=== PATIENT | female | born 1950 | race Caucasian/White ===

== ENCOUNTER 2019-09-17 06:22 | Day surgery (SDC) | payer MEDICARE, MEDICAID ==
[~2019-09-17] VITALS: Ht 144.8 cm; Wt 45.9 kg
[~2019-09-17 06:22] MED LIST: SODIUM CHLORIDE 0.9% 1,000 ML ONE
[2019-09-17] MEDS ORDERED: BENZOCAINE 20% 50 MCG/SPRAY 57 GM TP ONE (06:23)
[2019-09-17] MEDS ORDERED: ALBUTEROL SULFATE 2.5 MG/0.5 ML NEB SOLUTION NEB ONE (06:23)
[2019-09-17] MEDS ORDERED: LIDOCAINE 4% 50 ML SOLUTION TP ONE (06:23)
[2019-09-17] MEDS ORDERED: LIDOCAINE 2% 30 ML JELLY TP ONE (06:23)
[2019-09-17] MEDS ORDERED: SODIUM CHLORIDE 0.9% 1,000 ML IV ONE (07:00)
[2019-09-17] MEDS ORDERED: MIDAZOLAM HCL 2 MG/2 ML VIAL ONE (07:03)
[2019-09-17] MEDS ORDERED: FentaNYL CITRATE-PF 100 MCG/2 ML VIAL ONE (07:03)
[2019-09-17] MEDS ORDERED: FLUT16H NASAL (07:22)
[2019-09-17] MEDS ORDERED: DOXY100C PO (07:22)
[2019-09-17] MEDS ORDERED: IPRA4AER IH (07:22)
[2019-09-17] MEDS ORDERED: ALEN70TA10 PO (07:22)
[2019-09-17] MEDS ORDERED: PRED10 PO (07:22)
[2019-09-17] MEDS ORDERED: MONTELUKAST PO (07:22)
[2019-09-17] MEDS ORDERED: ALBU8.5H8 IH (07:22)
[2019-09-17] MEDS ORDERED: MOME13HF IH (07:22)
[2019-09-17] MEDS ORDERED: MethylPREDNISolone SOD SUCC 125 MG/2 ML VIAL ONE (08:30)
[2019-09-17] MEDS ORDERED: MethylPREDNISolone SOD SUCC 125 MG/2 ML VIAL IVP ONE (09:00)
== END 2019-09-17 10:40 | disposition home or self-care (01) ==
LOC: SURGERY 06:22
PROVIDERS: ATTEND Internal Medicine Critical Care Medicine
DX: R05 Cough (principal); R04.2 Hemoptysis; J34.89 Other specified disorders of nose and nasal sinuses; J98.8 Other specified respiratory disorders; J38.4 Edema of larynx; B37.0 Candidal stomatitis; R19.09 Other intra-abdominal and pelvic swelling, mass and lump; E78.00 Pure hypercholesterolemia, unspecified; M19.90 Unspecified osteoarthritis, unspecified site; Z79.899 Other long term (current) drug therapy
CPT/HCPCS: 31623; 31624; 36415; 71045; 85610; 87015; 87070; 87101; 87205; 87206; 87220; 88184; 88185; J2250; J2930; J3010; J7030; 88108; 88312

== ENCOUNTER 2022-09-05 18:43 | Inpatient (IN) | payer MEDICARE, OTHER ==
[~2022-09-05] VITALS: Ht 152.4 cm; Wt 46.0 kg
[~2022-09-05 18:43] MED LIST changes: +ALBU8.5H8 IH; +ALEN70TA65 PO; +DOXY100C PO; +FLUT16SP NASAL; +IPRA4AER IH; +MOME13HF11 IH; +MONTELUKAST PO; +PRED-729 PO; -SODIUM CHLORIDE 0.9% 1,000 ML ONE
[2022-09-05] MEDS ORDERED: CALC-1038 PO (18:58)
[2022-09-05] MEDS ORDERED: DENO60DI SQ (18:58)
[2022-09-05] MEDS ORDERED: CHOL400T56 PO (18:58)
[2022-09-05] MEDS ORDERED: PANT-31 PO (19:00)
[2022-09-05] MEDS ORDERED: BENZ-227 PO (19:00)
[2022-09-05] MEDS ORDERED: FAMOTIDINE 10 MG/ML 2 ML VIAL IVP ONE (22:30)
[2022-09-05] MEDS ORDERED: ACETAMINOPHEN 1000 MG/ISO-OSM 100 ML IV ONE (22:30)
[2022-09-05] MEDS ORDERED: SODIUM CHLORIDE 0.9% 1,000 ML IV ONE (22:30)
[2022-09-05] MEDS ORDERED: ONDANSETRON HCL 4 MG/2 ML VIAL IVP ONE (22:30)
[2022-09-05 23:16] LABS: APPEARANCE,URINE CLEAR (CLEAR); BILIRUBIN,URINE NEGATIVE (NEGATIVE); GLUCOSE, URINE (UA) NEGATIVE (NEGATIVE); KETONES,URINE 40-60 mg/dL (NEGATIVE); LEUKOCYTE ESTERASE ,URINE NEGATIVE (NEGATIVE); NITRATE,URINE NEGATIVE (NEGATIVE); OCCULT BLOOD,URINE MODERATE (NEGATIVE); PROTEIN,URINE 30-70 mg/dL (NEGATIVE); SPECIFIC GRAVITIY, URINE 1.017 (1.003-1.030); UROBILINOGEN,URINE <=1.0 mg/dL (<=1.0)
[2022-09-05 23:27] LABS: BACTERIA,URINE None Seen /HPF (None Seen); SQUAMOUS EPITHELIAL CELL,UR Few /LPF (None Seen); WBC,URINE None Seen /HPF (0-5)
[2022-09-05 23:29] LABS: COVID AG,FIA SOURCE NASOPHARYNGEAL
[2022-09-05 23:36] LABS: EOSINOPHILS % (AUTO) 0 % (1.0-6.0); HEMATOCRIT 40.9 % (36-46); HEMOGLOBIN 13.8 g/dL (12.0-16.0); LYMPHOCYTES # (AUTO) 0.5 K/uL (1.0-4.8); MEAN CORPUSCULAR HGB CONC 33.8 G/dL (31.0-37.0); MONOCYTES # (AUTO) 0.2 K/uL (0.1-1.0); NEUTROPHILS # (AUTO) 1.8 K/uL (1.8-7.7)
[2022-09-05 23:39] LABS: BASOPHILS % (AUTO) 0.6 % (0.0-2.0); LYMPHOCYTES % (AUTO) 19.7 % (22.0-44.0); MEAN CORPUSCULAR HEMOGLOBIN 29.7 pg (26.0-34.0); MEAN CORPUSCULAR VOLUME 88 fL (80-100); MONOCYTES % (AUTO) 9.1 % (2.0-9.0); NEUTROPHILS % (AUTO) 70.6 % (40.0-70.0); PLATELET COUNT (AUTO) 169 K/uL (150-450); RED BLOOD CELL COUNT(AUTO) 4.65 MIL/uL (4.00-5.20); RED CELL DISTRIBUTION WIDTH 13.3 % (11.5-14.5)
[2022-09-05 23:44] LABS: ANION GAP 10 mmol/L (8-16); CALCIUM, TOTAL 8.8 mg/dL (8.8-10.5); CARBON DIOXIDE 28 mmol/L (22-29); CHLORIDE 100 mmol/L (98-107); CREATININE 0.65 mg/dL (0.60-1.30); GLOMERULAR FILTR. RATE CALC > 60 mL/min (>60); GLUCOSE,RANDOM 103 mg/dL (70-110); INR 0.9 (0.9-1.1); POTASSIUM 3.4 mmol/L (3.5-5.1); SODIUM SERUM 138 mmol/L (136-145); UREA NITROGEN, BLOOD 5 mg/dL (7-18)
[2022-09-05] MEDS ORDERED: SODIUM CHLORIDE 0.9% 800 ML IV ONE (23:45)
[2022-09-05 23:46] LABS: INFLUENZA TYPE A NEGATIVE FOR TYPE A (NEGATIVE); INFLUENZA TYPE B NEGATIVE FOR TYPE B (NEGATIVE)
[2022-09-05 23:49] LABS: LACTIC ACID 0.7 mmol/L (0.4-2.0)
[2022-09-05 23:51] LABS: ALANINE AMINOTRANSFERASE 26 U/L (12-78); ALBUMIN 3.7 g/dL (3.4-5.0); ALKALINE PHOSPHATASE 44 U/L (46-116); ASPARTATE AMINOTRANSFERASE 25 U/L (15-37); BILIRUBIN,TOTAL 0.3 mg/dL (0.1-1.0); CREATINE KINASE, TOTAL ONLY 49 U/L (26-192); LIPASE 100 U/L (73-393); PHOSPHORUS 3.1 mg/dL (2.5-4.9); TOTAL PROTEIN, SERUM 7.5 g/dL (6.4-8.2)
[2022-09-05] MEDS ORDERED: IOHEXOL 350 MG/ML 100 ML VIAL ONE (23:51)
[2022-09-05] MEDS ORDERED: SODIUM CHLORIDE 0.9% 100 ML ONE (23:51)
[2022-09-06 00:04] LABS: B-TYPE NATRIURETIC PEPTIDE 21 pg/mL (0-100)
[2022-09-06] MEDS ORDERED: PIPERACILLIN/TAZO 3.375 GM/D5W 50 ML IV ONE (01:30)
[2022-09-06] MEDS ORDERED: ONDANSETRON HCL 4 MG/2 ML VIAL IVP PRN ×2 (05:00→16:00)
[2022-09-06] MEDS ORDERED: 0.9% SODIUM CHLORIDE 10 ML SYRINGE IVP PRN (05:00)
[2022-09-06] MEDS ORDERED: ACETAMINOPHEN 325 MG TABLET PO PRN ×2 (05:00→16:00)
[2022-09-06] MEDS ORDERED: REMDESIVIR 200 MG in SODIUM CHLORIDE 0.9% 250 ML IV ONE (05:30)
[2022-09-06] MEDS ORDERED: DEXAMETHASONE SOD PHOS 4 MG/ML VIAL IVP ONE (05:30)
[2022-09-06] MEDS ORDERED: GADOTERATE MEGLUMINE 10 MMOL/20 ML VIAL IVP ONE (08:39)
[2022-09-06 12:29] VITALS: BP 128/76
[2022-09-06 14:55] VITALS: BP 122/68
[2022-09-06] MEDS ORDERED: ZOLPIDEM TARTRATE 5 MG TABLET PO PRN (16:00)
[2022-09-06] MEDS ORDERED: MORPHINE SULFATE 2 MG/ML SYRINGE IVP PRN (16:00)
[2022-09-06] MEDS ORDERED: MAGNESIUM HYDROXIDE SUSPENSION 30 ML UDCUP PO PRN (16:00)
[2022-09-06] MEDS ORDERED: BISACODYL 10 MG RECTAL RECTAL SUPPOSITORY PR PRN (16:00)
[2022-09-06] MEDS ORDERED: ALBUTEROL SULFATE HFA 90 MCG/PUFF 8 GM INHALER IH PRN (16:00)
[2022-09-06] MEDS: HYDROCODONE/ACETAMINOPHEN 5-325 MG TABLET PO PRN (17:20)
[2022-09-06] MEDS: HEPARIN SODIUM,PORCINE 5,000 UNITS/ML VIAL SQ SCH ×2 (17:23→23:04)
[2022-09-06] MEDS: PIPERACILLIN/TAZO 3.375 GM/D5W 50 ML IV SCH ×2 (17:42→23:05)
[2022-09-06 21:02] VITALS: BP 105/65
[2022-09-06] MEDS: BUDESONIDE 180 MCG/INH INHALER [120] IH SCH (21:43)
[2022-09-06] MEDS: DOCUSATE SODIUM 100 MG CAPSULE PO SCH (21:43)
[2022-09-06] MEDS ORDERED: POTASSIUM CHLORIDE 20 MEQ ER TABLET PO ONE (22:00)
[2022-09-07 00:45] VITALS: BP 98/68
[2022-09-07] MEDS: PIPERACILLIN/TAZO 3.375 GM/D5W 50 ML IV SCH ×4 (05:04→22:32)
[2022-09-07 06:00] VITALS: BP 137/64
[2022-09-07] MEDS: HYDROCODONE/ACETAMINOPHEN 5-325 MG TABLET PO PRN ×2 (06:11→09:18)
[2022-09-07 07:30] LABS: BASOPHILS % (AUTO) 0.4 % (0.0-2.0); EOSINOPHILS % (AUTO) 0 % (1.0-6.0); HEMATOCRIT 40.3 % (36-46); HEMOGLOBIN 13.7 g/dL (12.0-16.0); LYMPHOCYTES # (AUTO) 0.7 K/uL (1.0-4.8); LYMPHOCYTES % (AUTO) 21.1 % (22.0-44.0); MEAN CORPUSCULAR VOLUME 88 fL (80-100); MONOCYTES # (AUTO) 0.2 K/uL (0.1-1.0); MONOCYTES % (AUTO) 7.8 % (2.0-9.0); NEUTROPHILS # (AUTO) 2.2 K/uL (1.8-7.7); NEUTROPHILS % (AUTO) 70.7 % (40.0-70.0); PLATELET COUNT (AUTO) 180 K/uL (150-450); RED BLOOD CELL COUNT(AUTO) 4.56 MIL/uL (4.00-5.20); RED CELL DISTRIBUTION WIDTH 13.5 % (11.5-14.5)
[2022-09-07 07:46] LABS: ALANINE AMINOTRANSFERASE 22 U/L (12-78); ALBUMIN 3.4 g/dL (3.4-5.0); ALKALINE PHOSPHATASE 42 U/L (46-116); ANION GAP 9 mmol/L (8-16); ASPARTATE AMINOTRANSFERASE 25 U/L (15-37); BILIRUBIN,TOTAL 0.4 mg/dL (0.1-1.0); CALCIUM, TOTAL 7.9 mg/dL (8.8-10.5); CARBON DIOXIDE 28 mmol/L (22-29); CHLORIDE 104 mmol/L (98-107); CREATININE 0.76 mg/dL (0.60-1.30); GLOMERULAR FILTR. RATE CALC > 60 mL/min (>60); GLUCOSE,RANDOM 98 mg/dL (70-110); POTASSIUM 4.1 mmol/L (3.5-5.1); SODIUM SERUM 141 mmol/L (136-145); TOTAL PROTEIN, SERUM 7.1 g/dL (6.4-8.2); UREA NITROGEN, BLOOD 13 mg/dL (7-18)
[2022-09-07] MEDS: HEPARIN SODIUM,PORCINE 5,000 UNITS/ML VIAL SQ SCH ×3 (09:16→22:32)
[2022-09-07] MEDS: DEXAMETHASONE 4 MG TABLET PO SCH (09:17)
[2022-09-07] MEDS: DOCUSATE SODIUM 100 MG CAPSULE PO SCH ×2 (09:17→20:10)
[2022-09-07] MEDS: PANTOPRAZOLE SODIUM 40 MG DR TABLET PO SCH (09:17)
[2022-09-07 09:29] VITALS: BP 94/60
[2022-09-07] MEDS: BUDESONIDE 180 MCG/INH INHALER [120] IH SCH ×2 (09:32→20:13)
[2022-09-07 11:10] VITALS: BP 85/53
[2022-09-07] MEDS ORDERED: SODIUM CHLORIDE 0.9% 1,000 ML IV ONE (11:15)
[2022-09-07] MEDS ORDERED: SODIUM CHLORIDE 0.9% 250 ML IV ONE (11:15)
[2022-09-07] MEDS: AZITHROMYCIN 500 MG/NS 250 ML IV SCH (11:46)
[2022-09-07 16:36] VITALS: BP 91/53
[2022-09-07 20:28] VITALS: BP 90/55
[2022-09-08 00:30] VITALS: BP 89/60
[2022-09-08 05:16] VITALS: BP 106/70
[2022-09-08] MEDS: PIPERACILLIN/TAZO 3.375 GM/D5W 50 ML IV SCH ×3 (05:37→18:00)
[2022-09-08 06:22] LABS: BASOPHILS % (AUTO) 0.3 % (0.0-2.0); EOSINOPHILS % (AUTO) 0 % (1.0-6.0); HEMATOCRIT 37.8 % (36-46); HEMOGLOBIN 12.9 g/dL (12.0-16.0); LYMPHOCYTES # (AUTO) 0.5 K/uL (1.0-4.8); LYMPHOCYTES % (AUTO) 19.6 % (22.0-44.0); MEAN CORPUSCULAR HEMOGLOBIN 29.5 pg (26.0-34.0); MEAN CORPUSCULAR HGB CONC 34.1 G/dL (31.0-37.0); MEAN CORPUSCULAR VOLUME 87 fL (80-100); MONOCYTES # (AUTO) 0.1 K/uL (0.1-1.0); MONOCYTES % (AUTO) 6.2 % (2.0-9.0); NEUTROPHILS # (AUTO) 1.7 K/uL (1.8-7.7); NEUTROPHILS % (AUTO) 73.9 % (40.0-70.0); PLATELET COUNT (AUTO) 213 K/uL (150-450); RED BLOOD CELL COUNT(AUTO) 4.38 MIL/uL (4.00-5.20); RED CELL DISTRIBUTION WIDTH 13.6 % (11.5-14.5)
[2022-09-08 08:32] VITALS: BP 126/74
[2022-09-08] MEDS: DOCUSATE SODIUM 100 MG CAPSULE PO SCH (09:00)
[2022-09-08] MEDS: PANTOPRAZOLE SODIUM 40 MG DR TABLET PO SCH (09:00)
[2022-09-08] MEDS: DEXAMETHASONE 4 MG TABLET PO SCH (09:01)
[2022-09-08] MEDS: HEPARIN SODIUM,PORCINE 5,000 UNITS/ML VIAL SQ SCH ×2 (09:01→16:25)
[2022-09-08] MEDS: BUDESONIDE 180 MCG/INH INHALER [120] IH SCH (09:12)
[2022-09-08 11:09] VITALS: BP 100/61
[2022-09-08] MEDS: AZITHROMYCIN 500 MG/NS 250 ML IV SCH (11:10)
[2022-09-08] MEDS ORDERED: SODIUM CHLORIDE 0.9% 500 ML IV ONE (11:15)
[2022-09-08 12:41] VITALS: BP 111/59
[2022-09-08] MEDS ORDERED: AZIT-104 PO (16:10)
[2022-09-08] MEDS ORDERED: ALBU8HFA IH (16:10)
[2022-09-08] MEDS ORDERED: DEXA6TAB PO (16:10)
== END 2022-09-08 18:20 | disposition home or self-care (01) | DRG 179 ==
LOC: EMS 18:44 → AHU 09-06 07:47 → 5S 09-06 11:25
PROVIDERS: ADMIT Internal Medicine; ATTEND Internal Medicine
PROC: XW033E5 Introduction of Remdesivir Anti-infective into Peripheral Vein, Percutaneous Approach, New Technology Group 5 (ICD-10-PCS; principal; 2022-09-06)
DX: U07.1 COVID-19 (principal); K21.9 Gastro-esophageal reflux disease without esophagitis; J45.909 Unspecified asthma, uncomplicated; E87.6 Hypokalemia; K80.20 Calculus of gallbladder without cholecystitis without obstruction; K59.00 Constipation, unspecified; Z79.899 Other long term (current) drug therapy; M81.0 Age-related osteoporosis without current pathological fracture
CPT/HCPCS: 71045; 74177; 74183; 76705; 80053; 81001; 82550; 83605; 83690; 83735; 83880; 84100; 84145; 84484; 85025; 85610; 87040; 87804; 93005; 99291; J0131; J0456; J1100; J1644; J2405; J2543; J3490; J3535; J7030; J7040; J7050; J8540; Q9967; 36415-L1; 36415-TC; U0003

== ENCOUNTER 2023-12-01 20:09 | Emergency (ER) | payer MEDICARE, OTHER ==
[~2023-12-01] VITALS: Ht 144.8 cm; Wt 47.7 kg
[~2023-12-01 20:09] MED LIST changes: +ALBU18HF12 IH; -ALBU8.5H8 IH; -ALEN70TA65 PO; +AZIT-167 PO; +BENZ-227 PO; +DENO60DI SQ; +DEXA6TAB PO; -DOXY100C PO; -IPRA4AER IH; -MOME13HF11 IH; -MONTELUKAST PO; +PANT-31 PO; -PRED-729 PO
[2023-12-01 20:15] VITALS: BP 119/62; PULSE 78; RESP 20; TEMP 98.2
[2023-12-01] MEDS ORDERED: FLUT1BLS3 IH (20:18)
[2023-12-01] MEDS ORDERED: CHOL500050 PO (20:19)
[2023-12-01 21:23] LABS: BASOPHILS % (AUTO) 0.3 % (0.0-2.0); EOSINOPHILS % (AUTO) 0.8 % (1.0-6.0); HEMATOCRIT 38.2 % (36-46); HEMOGLOBIN 12.7 g/dL (12.0-16.0); LYMPHOCYTES # (AUTO) 1.2 K/uL (1.0-4.8); LYMPHOCYTES % (AUTO) 46.2 % (22.0-44.0); MEAN CORPUSCULAR HEMOGLOBIN 30.1 pg (26.0-34.0); MEAN CORPUSCULAR HGB CONC 33.1 G/dL (31.0-37.0); MEAN CORPUSCULAR VOLUME 91 fL (80-100); MONOCYTES # (AUTO) 0.3 K/uL (0.1-1.0); MONOCYTES % (AUTO) 11.7 % (2.0-9.0); PLATELET COUNT (AUTO) 195 K/uL (150-450); RED BLOOD CELL COUNT(AUTO) 4.21 MIL/uL (4.00-5.20); RED CELL DISTRIBUTION WIDTH 13.9 % (11.5-14.5); WHITE BLOOD COUNT (AUTO) 2.6 K/uL (4.5-11.0)
[2023-12-01 21:30] LABS: ANION GAP 3 mmol/L (8-16); CALCIUM, TOTAL 9.5 mg/dL (8.8-10.5); CARBON DIOXIDE 35 mmol/L (22-29); CHLORIDE 106 mmol/L (98-107); CREATININE 0.61 mg/dL (0.60-1.30); GLOMERULAR FILTR. RATE CALC > 60 mL/min (>60); GLUCOSE,RANDOM 103 mg/dL (70-110); POTASSIUM 4.1 mmol/L (3.5-5.1); SODIUM SERUM 144 mmol/L (136-145); UREA NITROGEN, BLOOD 12 mg/dL (7-18)
== END 2023-12-01 22:23 | disposition home or self-care (01) ==
LOC: EMS 20:09
DX: S60.212A Contusion of left wrist, initial encounter (principal); R22.32 Localized swelling, mass and lump, left upper limb; J45.909 Unspecified asthma, uncomplicated; K21.9 Gastro-esophageal reflux disease without esophagitis; W57.XXXA Bitten or stung by nonvenomous insect and other nonvenomous arthropods, initial encounter; Y93.89 Activity, other specified; Y92.89 Other specified places as the place of occurrence of the external cause; Y99.8 Other external cause status
CPT/HCPCS: 80048; 85025; 99283